=== PATIENT | male | born 1960 | race Caucasian/White ===

== ENCOUNTER 2022-03-14 16:41 | Emergency (ER) | payer MEDICAID, OTHER ==
[~2022-03-14] VITALS: Ht 167.6 cm; Wt 65.8 kg
[2022-03-14 17:47] LABS: Basophils # (auto) 0.1 10 ^3/uL (0-0.2); Basophils % (auto) 1.4 % (0.0-2.0); Eosinophils # (auto) 0.3 10 ^3/uL (0-0.8); Eosinophils % (auto) 6.1 % (0.0-7.0); Hematocrit 38.3 % (41.0-53.0); Hemoglobin 13.4 g/dL (13.5-17.5); Lymphocytes # (auto) 2.8 10 ^3/uL (0.4-5.4); Lymphocytes % (auto) 49.6 % (10.0-50.0); Mean Corpuscular Hgb Conc. 35.1 g/dL (32.0-36.0); Mean Corpuscular Volume 97.1 fL (80.0-100.0); Monocytes # (auto) 0.4 10 ^3/uL (0-1.3); Monocytes % (auto) 7.5 % (0.0-12.0); Neutrophils % (auto) 35.4 % (37.0-80.0); Nucleated Red Blood Cells % 0.1 %; Red Blood Cells 3.95 10^6/uL (4.5-5.90); Red Cell Distribution Width 13.3 % (11.8-14.3); White Blood Cell 5.7 10^3/uL (4.4-10.8)
[2022-03-14 18:29] LABS: Albumin 3.5 g/dL (3.4-5.0); Calcium 8.3 mg/dL (8.5-10.1); Magnesium 2.6 mg/dL (1.6-2.6); Potassium 3.9 mmol/L (3.5-5.1)
[2022-03-14 18:32] LABS: Bilirubin, Total 0.5 mg/dL (0.2-1.0); Total Protein 6.8 g/dL (6.4-8.2)
[2022-03-14] MEDS ORDERED: ASPirin-EC 325mg tab PO ONE (19:00)
[2022-03-14] MEDS ORDERED: SODIUM CHLORIDE 0.9% 3,000 ML IV ONE (19:00)
[2022-03-14 20:01] VITALS: BP 137/97
== END 2022-03-14 20:59 | disposition home or self-care (01) ==
LOC: EDBD 16:41 → ER 16:41
DX: R07.89 Other chest pain (principal); F10.10 Alcohol abuse, uncomplicated; I10 Essential (primary) hypertension
CPT/HCPCS: 36415; 71045; 80053; 80320; 83735; 83880; 84484; 85025; 93005; 96360; 99285; J7030

== ENCOUNTER 2022-05-27 11:59 | Emergency (ER) | payer MEDICAID ==
[~2022-05-27] VITALS: Ht 170.2 cm; Wt 160.0 kg
[2022-05-27] MEDS ORDERED: SODIUM CHLORIDE 0.9% 1,000 ML IV ONE ×2 (12:30)
[2022-05-27] MEDS ORDERED: THIAMINE 100mg/ml INJ (200mg/2ml VIAL) IV ONE (13:30)
[2022-05-27 13:34] LABS: Basophils # (auto) 0.1 10 ^3/uL (0-0.2); Basophils % (auto) 1.3 % (0.0-2.0); Eosinophils # (auto) 0.1 10 ^3/uL (0-0.8); Eosinophils % (auto) 1.4 % (0.0-7.0); Hematocrit 39.9 % (41.0-53.0); Hemoglobin 13.5 g/dL (13.5-17.5); Lymphocytes # (auto) 2.3 10 ^3/uL (0.4-5.4); Lymphocytes % (auto) 31.5 % (10.0-50.0); Mean Corpuscular Hemoglobin 32.1 pg (28.0-32.0); Mean Corpuscular Hgb Conc. 33.8 g/dL (32.0-36.0); Mean Corpuscular Volume 95.2 fL (80.0-100.0); Monocytes # (auto) 0.7 10 ^3/uL (0-1.3); Monocytes % (auto) 9.5 % (0.0-12.0); Neutrophils # (auto) 4.1 10 ^3/uL (1.6-8.6); Neutrophils % (auto) 56.3 % (37.0-80.0); Nucleated Red Blood Cells % 0.2 %; Red Cell Distribution Width 13.6 % (11.8-14.3); White Blood Cell 7.3 10^3/uL (4.4-10.8)
[2022-05-27 13:50] LABS: Albumin 3.8 g/dL (3.4-5.0); Calcium 8.4 mg/dL (8.5-10.1); Potassium 4.5 mmol/L (3.5-5.1)
[2022-05-27 13:54] LABS: BUN/Creatinine Ratio 9.4; Bilirubin, Total 0.7 mg/dL (0.2-1.0); Total Protein 7.4 g/dL (6.4-8.2)
[2022-05-27] MEDS ORDERED: ACETAMINOPHEN 500 MG TAB PO ONE (20:15)
[2022-05-27 21:50] VITALS: BP 165/99
== END 2022-05-27 23:15 | disposition home or self-care (01) ==
LOC: EDSEX 11:59 → EDBD 11:59 → ER 11:59
DX: S29.011A Strain of muscle and tendon of front wall of thorax, initial encounter (principal); I10 Essential (primary) hypertension; F17.210 Nicotine dependence, cigarettes, uncomplicated; F10.129 Alcohol abuse with intoxication, unspecified; W18.09XA Striking against other object with subsequent fall, initial encounter; Y93.89 Activity, other specified; Y92.89 Other specified places as the place of occurrence of the external cause; Y99.8 Other external cause status; Y90.8 Blood alcohol level of 240 mg/100 ml or more
CPT/HCPCS: 36415; 71045; 71250; 80053; 80320; 84484; 85025; 96361; 96374; 99285; J3411; J7030

== ENCOUNTER 2022-08-26 08:27 | Inpatient (IN) | payer MEDICAID ==
[~2022-08-26] VITALS: Ht 175.3 cm; Wt 75.5 kg
[2022-08-26] MEDS ORDERED: TETANUS-DIPTH-ACEL PERTUSSIS 0.5ML SYR Tdap IM ONE (10:45)
[2022-08-26 11:35] LABS: Basophils # (auto) 0.1 10 ^3/uL (0-0.2); Basophils % (auto) 0.4 % (0.0-2.0); Eosinophils # (auto) 0 10 ^3/uL (0-0.8); Hematocrit 43.6 % (41.0-53.0); Hemoglobin 14.6 g/dL (13.5-17.5); Lymphocytes # (auto) 1.2 10 ^3/uL (0.4-5.4); Lymphocytes % (auto) 8.3 % (10.0-50.0); Mean Corpuscular Hemoglobin 31.8 pg (28.0-32.0); Mean Corpuscular Hgb Conc. 33.4 g/dL (32.0-36.0); Mean Corpuscular Volume 95.2 fL (80.0-100.0); Monocytes # (auto) 1.4 10 ^3/uL (0-1.3); Monocytes % (auto) 9.4 % (0.0-12.0); Neutrophils # (auto) 12.1 10 ^3/uL (1.6-8.6); Neutrophils % (auto) 81.9 % (37.0-80.0); Red Blood Cells 4.58 10^6/uL (4.5-5.90); White Blood Cell 14.8 10^3/uL (4.4-10.8)
[2022-08-26 11:59] LABS: INR 1.03 (0.9-1.15); Partial Thromboplastin Time 27.4 sec (24.6-33.4)
[2022-08-26 12:43] LABS: BUN/Creatinine Ratio 12.5; Potassium 4.9 mmol/L (3.5-5.1)
[2022-08-26 12:44] LABS: Albumin 3.9 g/dL (3.4-5.0); Bilirubin, Total 0.9 mg/dL (0.2-1.0); Calcium 8.7 mg/dL (8.5-10.1); Magnesium 2.2 mg/dL (1.6-2.6)
[2022-08-26] MEDS ORDERED: chlordiazePOXIDE HCL 25 MG CAP PO ONE (16:15)
[2022-08-26] MEDS ORDERED: LORazepam 2MG/ML-1ML VIAL IV ONE (16:15)
[2022-08-26] MEDS ORDERED: SODIUM CHLORIDE 0.9% 1,000 ML IV ONE (16:15)
[2022-08-26] MEDS ORDERED: AMOXICILLIN/CLAVUL 875 MG TAB PO ONE (16:15)
[2022-08-26] MEDS ORDERED: NEOMYCIN-BACITRACIN-POLYM 15GM TOP OINT TOP ONE (18:20)
[2022-08-26] MEDS ORDERED: cefTRIAXone 1GM/50ML D5W 50 ML IV ONE (18:30)
[2022-08-26] MEDS: SODIUM CHLORIDE 0.9% 1,000 ML IV SCH (18:30)
[2022-08-26] MEDS ORDERED: PANTOPRAZOLE 40 MG/10 ML VIAL INJ IV ONE (18:30)
[2022-08-26] MEDS ORDERED: methylPREDNISolone SOD SUCC 125 MG/2 ML VL IV ONE (19:00)
[2022-08-26] MEDS ORDERED: ALBUTEROL SULF 2.5 MG/0.5ML(0.5%) NEB SOLN NEB ONE (19:00)
[2022-08-26] MEDS ORDERED: IPRATROPIUM BROM 0.5 MG/2.5ML INH SOL NEB ONE (19:00)
[2022-08-26] MEDS ORDERED: FUROSEMIDE 20 MG/2 ML VIAL IV ONE (19:00)
[2022-08-26 19:08] VITALS: BP 157/91
[2022-08-26] MEDS: ONDANSETRON HCL 4 MG/2 ML VIAL IV PRN (19:12)
[2022-08-26] MEDS ORDERED: OXYMETAZOLINE HCL 0.05 % NASAL SPRAY 15ML ONE (19:15)
[2022-08-26] MEDS ORDERED: OXYMETAZOLINE HCL 0.05 % NASAL SPRAY 15ML EACHNOSTRI ONE (19:15)
[2022-08-26] MEDS ORDERED: CLINDAMYCIN 600MG IV 50 ML IV ONE (19:15)
[2022-08-26 20:14] LABS: Urine Bacteria NONE SEEN /hpf (None Seen); Urine Blood 3+ /uL (Negative); Urine Specific Gravity 1.027 (1.001-1.035); Urine WBC 5 /hpf (0 - 3)
[2022-08-26 20:46] LABS: Amphetamine Screen, Urine NEGATIVE (NEGATIVE); Benzodiazephine Screen, Urine NEGATIVE (NEGATIVE); Cannabinoid Screen, Urine NEGATIVE (NEGATIVE); Cocaine Screen, Urine NEGATIVE (NEGATIVE); Opiate Scree,Urine NEGATIVE (NEGATIVE); Phencyclidine Screen, Urine NEGATIVE (NEGATIVE)
[2022-08-26 20:50] LABS: Barbiturate Scree,Urine NEGATIVE (NEGATIVE)
[2022-08-26] MEDS: methylPREDNISolone SOD SUCC 40 MG/ML VL IV SCH (22:09)
[2022-08-27] VITALS (60 sets, daily range): BP systolic 97–173; BP diastolic 63–106
[2022-08-27] MEDS ORDERED: HYDROcodone-ACET 7.5/325MG TAB PO PRN (00:45)
[2022-08-27] MEDS ORDERED: LABETALOL HCL 5 MG/ML 4ML SYRINGE IV ONE (02:15)
[2022-08-27] MEDS: ALBUTEROL SULF 2.5 MG/0.5ML(0.5%) NEB SOLN NEB SCH ×5 (03:15→18:01)
[2022-08-27] MEDS: IPRATROPIUM BROM 0.5 MG/2.5ML INH SOL NEB SCH ×5 (03:15→18:01)
[2022-08-27] MEDS ORDERED: ROCURONIUM 10MG/ML 10ML VIAL IV ONE ×2 (03:37→04:00)
[2022-08-27] MEDS ORDERED: ETOMIDATE (2MG/ML) 20ML VIAL IV ONE ×2 (03:37→04:00)
[2022-08-27] MEDS ORDERED: fentaNYL Drip 2500mCg/250mlNS 250 ML IV SCH (04:00)
[2022-08-27] MEDS ORDERED: MIDAZOLAM DRIP 50 mg/50mL 50 ML IV ONE (04:08)
[2022-08-27] MEDS ORDERED: IOHEXOL 350 MG/ML 100ML IJ ONE (05:03)
[2022-08-27 05:09] LABS: Basophils # (auto) 0 10 ^3/uL (0-0.2); Basophils % (auto) 0.1 % (0.0-2.0); Eosinophils # (auto) 0 10 ^3/uL (0-0.8); Hematocrit 37.9 % (41.0-53.0); Hemoglobin 12.9 g/dL (13.5-17.5); Lymphocytes # (auto) 0.5 10 ^3/uL (0.4-5.4); Lymphocytes % (auto) 7.9 % (10.0-50.0); Mean Corpuscular Hemoglobin 32.5 pg (28.0-32.0); Mean Corpuscular Volume 95.4 fL (80.0-100.0); Monocytes # (auto) 0.2 10 ^3/uL (0-1.3); Monocytes % (auto) 3.2 % (0.0-12.0); Neutrophils # (auto) 5.9 10 ^3/uL (1.6-8.6); Neutrophils % (auto) 88.8 % (37.0-80.0); Red Blood Cells 3.98 10^6/uL (4.5-5.90); Red Cell Distribution Width 14.4 % (11.8-14.3); White Blood Cell 6.6 10^3/uL (4.4-10.8)
[2022-08-27] MEDS: MIDAZOLAM DRIP 50 mg/50mL 50 ML IV SCH ×6 (05:14→22:56)
[2022-08-27 05:34] LABS: Albumin 3.2 g/dL (3.4-5.0); BUN/Creatinine Ratio 22.8; Calcium 7.8 mg/dL (8.5-10.1); Potassium 4.6 mmol/L (3.5-5.1)
[2022-08-27 05:36] LABS: Bilirubin, Total 1.1 mg/dL (0.2-1.0); Total Protein 6.3 g/dL (6.4-8.2)
[2022-08-27] MEDS: CLINDAMYCIN 600MG IV 50 ML IV SCH ×3 (05:36→19:58)
[2022-08-27] MEDS: SODIUM CHLORIDE 0.9% 1,000 ML IV SCH ×2 (06:26→14:30)
[2022-08-27] MEDS: methylPREDNISolone SOD SUCC 40 MG/ML VL IV SCH ×3 (07:15→21:53)
[2022-08-27] MEDS ORDERED: PROPOFOL 100 ML IV ONE (09:29)
[2022-08-27] MEDS: PROPOFOL 100 ML IV SCH ×2 (09:30→19:45)
[2022-08-27] MEDS: PANTOPRAZOLE 40 MG/10 ML VIAL INJ IV SCH (10:55)
[2022-08-27] MEDS: cefTRIAXone 1GM/50ML D5W 50 ML IV SCH (10:57)
[2022-08-27] MEDS: ENOXAPARIN SOD 40 MG/0.4 ML SYRINGE SC SCH (11:00)
[2022-08-27] MEDS: FOLIC ACID 1 MG, MULTIPLE VITAMIN 10 ML, MAGNESIUM SULF SDV 50% 8 MEQ, THIAMINE INJ 100... INJ SCH ×5 (13:10)
[2022-08-28] VITALS (80 sets, daily range): BP systolic 98–168; BP diastolic 61–103
[2022-08-28] MEDS: SODIUM CHLORIDE 0.9% 1,000 ML IV SCH ×3 (00:30→16:19)
[2022-08-28] MEDS: MIDAZOLAM DRIP 50 mg/50mL 50 ML IV SCH ×6 (03:07→21:33)
[2022-08-28] MEDS: CLINDAMYCIN 600MG IV 50 ML IV SCH ×3 (03:08→18:32)
[2022-08-28] MEDS: ALBUTEROL SULF 2.5 MG/0.5ML(0.5%) NEB SOLN NEB SCH ×4 (03:10→18:47)
[2022-08-28] MEDS: IPRATROPIUM BROM 0.5 MG/2.5ML INH SOL NEB SCH ×4 (03:10→18:47)
[2022-08-28] MEDS: PROPOFOL 100 ML IV SCH ×2 (04:30→15:30)
[2022-08-28 04:32] LABS: Basophils # (auto) 0 10 ^3/uL (0-0.2); Basophils % (auto) 0.2 % (0.0-2.0); Eosinophils # (auto) 0 10 ^3/uL (0-0.8); Hematocrit 33.6 % (41.0-53.0); Hemoglobin 11.3 g/dL (13.5-17.5); Lymphocytes # (auto) 0.4 10 ^3/uL (0.4-5.4); Lymphocytes % (auto) 5.5 % (10.0-50.0); Mean Corpuscular Hemoglobin 32.4 pg (28.0-32.0); Mean Corpuscular Hgb Conc. 33.5 g/dL (32.0-36.0); Monocytes # (auto) 0.5 10 ^3/uL (0-1.3); Monocytes % (auto) 7.2 % (0.0-12.0); Neutrophils # (auto) 6.5 10 ^3/uL (1.6-8.6); Neutrophils % (auto) 87.1 % (37.0-80.0); Red Blood Cells 3.47 10^6/uL (4.5-5.90); Red Cell Distribution Width 14.5 % (11.8-14.3); White Blood Cell 7.5 10^3/uL (4.4-10.8)
[2022-08-28 04:55] LABS: Albumin 2.8 g/dL (3.4-5.0); Calcium 7.8 mg/dL (8.5-10.1); Potassium 5.1 mmol/L (3.5-5.1)
[2022-08-28 04:59] LABS: BUN/Creatinine Ratio 35.2; Bilirubin, Total 0.5 mg/dL (0.2-1.0); Total Protein 5.4 g/dL (6.4-8.2)
[2022-08-28] MEDS: methylPREDNISolone SOD SUCC 40 MG/ML VL IV SCH ×3 (05:43→22:27)
[2022-08-28] MEDS: cefTRIAXone 1GM/50ML D5W 50 ML IV SCH (09:05)
[2022-08-28] MEDS: PANTOPRAZOLE 40 MG/10 ML VIAL INJ IV SCH (09:33)
[2022-08-28] MEDS: ENOXAPARIN SOD 40 MG/0.4 ML SYRINGE SC SCH (09:34)
[2022-08-28] MEDS ORDERED: IOHEXOL 350 MG/ML 100ML IJ ONE (10:34)
[2022-08-28] MEDS: FOLIC ACID 1 MG, MULTIPLE VITAMIN 10 ML, MAGNESIUM SULF SDV 50% 8 MEQ, THIAMINE INJ 100... INJ SCH ×5 (12:39)
[2022-08-29] VITALS (95 sets, daily range): BP systolic 100–166; BP diastolic 64–99
[2022-08-29] MEDS: ALBUTEROL SULF 2.5 MG/0.5ML(0.5%) NEB SOLN NEB SCH ×4 (00:18→18:16)
[2022-08-29] MEDS: IPRATROPIUM BROM 0.5 MG/2.5ML INH SOL NEB SCH ×4 (00:18→18:16)
[2022-08-29] MEDS: chlordiazePOXIDE HCL 25 MG CAP PO PRN (01:17)
[2022-08-29] MEDS: MIDAZOLAM DRIP 50 mg/50mL 50 ML IV SCH ×3 (02:09→23:02)
[2022-08-29] MEDS: CLINDAMYCIN 600MG IV 50 ML IV SCH ×3 (03:00→20:48)
[2022-08-29] MEDS: SODIUM CHLORIDE 0.9% 1,000 ML IV SCH (03:40)
[2022-08-29 04:49] LABS: Calcium 7.6 mg/dL (8.5-10.1)
[2022-08-29 04:53] LABS: Albumin 2.5 g/dL (3.4-5.0); BUN/Creatinine Ratio 29.5
[2022-08-29 05:05] LABS: Bilirubin, Total 0.4 mg/dL (0.2-1.0); Total Protein 5.2 g/dL (6.4-8.2)
[2022-08-29 05:17] LABS: Basophils # (auto) 0 10 ^3/uL (0-0.2); Basophils % (auto) 0.3 % (0.0-2.0); Eosinophils # (auto) 0 10 ^3/uL (0-0.8); Hemoglobin 10.7 g/dL (13.5-17.5); Lymphocytes % (auto) 11.1 % (10.0-50.0); Mean Corpuscular Hemoglobin 33.3 pg (28.0-32.0); Mean Corpuscular Hgb Conc. 34.5 g/dL (32.0-36.0); Mean Corpuscular Volume 96.5 fL (80.0-100.0); Monocytes # (auto) 0.7 10 ^3/uL (0-1.3); Monocytes % (auto) 7.6 % (0.0-12.0); Neutrophils # (auto) 6.9 10 ^3/uL (1.6-8.6); Red Blood Cells 3.21 10^6/uL (4.5-5.90); Red Cell Distribution Width 14.6 % (11.8-14.3); White Blood Cell 8.6 10^3/uL (4.4-10.8)
[2022-08-29] MEDS: methylPREDNISolone SOD SUCC 40 MG/ML VL IV SCH ×3 (05:42→22:26)
[2022-08-29] MEDS: PROPOFOL 100 ML IV SCH ×2 (05:43→20:48)
[2022-08-29] MEDS: fentaNYL Drip 2500mCg/250mlNS 250 ML IV SCH (08:15)
[2022-08-29] MEDS: cefTRIAXone 1GM/50ML D5W 50 ML IV SCH ×2 (09:00→11:47)
[2022-08-29] MEDS: FUROSEMIDE 100 MG/10ML VIAL IV SCH (10:00)
[2022-08-29] MEDS: ENOXAPARIN SOD 40 MG/0.4 ML SYRINGE SC SCH (10:00)
[2022-08-29] MEDS: PANTOPRAZOLE 40 MG/10 ML VIAL INJ IV SCH (10:00)
[2022-08-29] MEDS: FOLIC ACID 1 MG, MULTIPLE VITAMIN 10 ML, MAGNESIUM SULF SDV 50% 8 MEQ, THIAMINE INJ 100... INJ SCH ×5 (12:00)
[2022-08-30] VITALS (65 sets, daily range): BP systolic 89–186; BP diastolic 53–109
[2022-08-30] MEDS: IPRATROPIUM BROM 0.5 MG/2.5ML INH SOL NEB SCH ×4 (00:20→19:48)
[2022-08-30] MEDS: ALBUTEROL SULF 2.5 MG/0.5ML(0.5%) NEB SOLN NEB SCH ×4 (00:20→19:48)
[2022-08-30] MEDS: SODIUM CHLORIDE 0.9% 1,000 ML IV SCH ×4 (01:09→22:30)
[2022-08-30] MEDS: CLINDAMYCIN 600MG IV 50 ML IV SCH ×3 (03:00→18:07)
[2022-08-30 04:14] LABS: Basophils # (auto) 0 10 ^3/uL (0-0.2); Basophils % (auto) 0.3 % (0.0-2.0); Eosinophils # (auto) 0.1 10 ^3/uL (0-0.8); Eosinophils % (auto) 1.3 % (0.0-7.0); Hematocrit 33.3 % (41.0-53.0); Hemoglobin 11.3 g/dL (13.5-17.5); Lymphocytes # (auto) 2.1 10 ^3/uL (0.4-5.4); Lymphocytes % (auto) 34.2 % (10.0-50.0); Mean Corpuscular Hemoglobin 32.7 pg (28.0-32.0); Mean Corpuscular Volume 96.1 fL (80.0-100.0); Monocytes # (auto) 0.4 10 ^3/uL (0-1.3); Monocytes % (auto) 6.8 % (0.0-12.0); Neutrophils # (auto) 3.5 10 ^3/uL (1.6-8.6); Neutrophils % (auto) 57.4 % (37.0-80.0); Nucleated Red Blood Cells % 0.1 %; Red Blood Cells 3.47 10^6/uL (4.5-5.90); Red Cell Distribution Width 14.5 % (11.8-14.3); White Blood Cell 6.1 10^3/uL (4.4-10.8)
[2022-08-30 04:45] LABS: Albumin 2.6 g/dL (3.4-5.0); BUN/Creatinine Ratio 29.5; Calcium 7.7 mg/dL (8.5-10.1); Potassium 3.4 mmol/L (3.5-5.1)
[2022-08-30 04:53] LABS: Bilirubin, Total 0.4 mg/dL (0.2-1.0); Total Protein 5.2 g/dL (6.4-8.2)
[2022-08-30] MEDS: MIDAZOLAM DRIP 50 mg/50mL 50 ML IV SCH (05:21)
[2022-08-30] MEDS: PROPOFOL 100 ML IV SCH (05:21)
[2022-08-30] MEDS: methylPREDNISolone SOD SUCC 40 MG/ML VL IV SCH ×3 (06:01→22:21)
[2022-08-30] MEDS: POTASSIUM CHL 20MEQ/100ML 100 ML IV SCH ×2 (08:10→09:31)
[2022-08-30] MEDS: fentaNYL Drip 2500mCg/250mlNS 250 ML IV SCH (08:15)
[2022-08-30] MEDS: FUROSEMIDE 100 MG/10ML VIAL IV SCH (09:09)
[2022-08-30] MEDS: cefTRIAXone 1GM/50ML D5W 50 ML IV SCH (09:09)
[2022-08-30] MEDS: PANTOPRAZOLE 40 MG/10 ML VIAL INJ IV SCH (09:09)
[2022-08-30] MEDS: ENOXAPARIN SOD 40 MG/0.4 ML SYRINGE SC SCH (09:09)
[2022-08-30] MEDS: chlordiazePOXIDE HCL 25 MG CAP PO PRN (09:09)
[2022-08-30] MEDS: FOLIC ACID 1 MG, MULTIPLE VITAMIN 10 ML, MAGNESIUM SULF SDV 50% 8 MEQ, THIAMINE INJ 100... INJ SCH ×5 (12:27)
[2022-08-30] MEDS: MORPHINE SULFATE INJ 2 MG/ml SYRG IV PRN ×3 (13:10→22:21)
[2022-08-30] MEDS: hydrALAZINE HCL 20 MG/ML VL IV PRN (18:07)
[2022-08-30] MEDS ORDERED: NITROGLYCERIN 0.4 MG SL TAB SL ONE (18:42)
[2022-08-30] MEDS ORDERED: NITROGLYCERIN 0.4 MG SL TAB SL PRN (18:45)
[2022-08-30] MEDS ORDERED: NOREPINEPHRINE 8 MG/250ML KIT 250 ML IV ONE (18:52)
[2022-08-30] MEDS ORDERED: ALBUTEROL SULF 2.5 MG/0.5ML(0.5%) NEB SOLN NEB ONE (19:15)
[2022-08-30] MEDS ORDERED: IPRATROPIUM BROM 0.5 MG/2.5ML INH SOL NEB ONE (19:15)
[2022-08-30] MEDS: LORazepam 2MG/ML-1ML VIAL IV PRN (23:59)
[2022-08-31] VITALS (65 sets, daily range): BP systolic 115–185; BP diastolic 63–105
[2022-08-31] MEDS: ONDANSETRON HCL 4 MG/2 ML VIAL IV PRN (00:34)
[2022-08-31] MEDS: hydrALAZINE HCL 20 MG/ML VL IV PRN ×3 (00:34→23:21)
[2022-08-31] MEDS: IPRATROPIUM BROM 0.5 MG/2.5ML INH SOL NEB SCH ×4 (01:14→18:45)
[2022-08-31] MEDS: ALBUTEROL SULF 2.5 MG/0.5ML(0.5%) NEB SOLN NEB SCH ×4 (01:14→18:45)
[2022-08-31] MEDS: CLINDAMYCIN 600MG IV 50 ML IV SCH ×2 (02:33→12:14)
[2022-08-31] MEDS: MORPHINE SULFATE INJ 2 MG/ml SYRG IV PRN ×3 (02:34→19:59)
[2022-08-31] MEDS: SODIUM CHLORIDE 0.9% 1,000 ML IV SCH (03:18)
[2022-08-31 04:52] LABS: Basophils # (auto) 0 10 ^3/uL (0-0.2); Basophils % (auto) 0.1 % (0.0-2.0); Eosinophils # (auto) 0 10 ^3/uL (0-0.8); Hematocrit 35.2 % (41.0-53.0); Hemoglobin 12.1 g/dL (13.5-17.5); Lymphocytes # (auto) 0.4 10 ^3/uL (0.4-5.4); Lymphocytes % (auto) 10.1 % (10.0-50.0); Mean Corpuscular Hemoglobin 32.5 pg (28.0-32.0); Mean Corpuscular Hgb Conc. 34.2 g/dL (32.0-36.0); Mean Corpuscular Volume 94.9 fL (80.0-100.0); Monocytes # (auto) 0.1 10 ^3/uL (0-1.3); Monocytes % (auto) 2.6 % (0.0-12.0); Neutrophils # (auto) 3.7 10 ^3/uL (1.6-8.6); Neutrophils % (auto) 87.2 % (37.0-80.0); Nucleated Red Blood Cells % 0.1 %; Red Blood Cells 3.71 10^6/uL (4.5-5.90); Red Cell Distribution Width 14.3 % (11.8-14.3); White Blood Cell 4.2 10^3/uL (4.4-10.8)
[2022-08-31 05:19] LABS: Albumin 2.8 g/dL (3.4-5.0); Calcium 8.2 mg/dL (8.5-10.1); Potassium 3.3 mmol/L (3.5-5.1)
[2022-08-31 05:23] LABS: BUN/Creatinine Ratio 19.6; Bilirubin, Total 0.6 mg/dL (0.2-1.0); Total Protein 5.9 g/dL (6.4-8.2)
[2022-08-31] MEDS: methylPREDNISolone SOD SUCC 40 MG/ML VL IV SCH (05:43)
[2022-08-31] MEDS ORDERED: POTASSIUM CHL 20MEQ/100ML 100 ML IV ONE (07:00)
[2022-08-31] MEDS: fentaNYL Drip 2500mCg/250mlNS 250 ML IV SCH (08:15)
[2022-08-31] MEDS: LORazepam 2MG/ML-1ML VIAL IV PRN ×2 (08:24→17:11)
[2022-08-31] MEDS: cefTRIAXone 1GM/50ML D5W 50 ML IV SCH (09:20)
[2022-08-31] MEDS: ENOXAPARIN SOD 40 MG/0.4 ML SYRINGE SC SCH (09:56)
[2022-08-31] MEDS: PANTOPRAZOLE 40 MG/10 ML VIAL INJ IV SCH (09:56)
[2022-08-31] MEDS: FUROSEMIDE 100 MG/10ML VIAL IV SCH (10:00)
[2022-08-31] MEDS: chlordiazePOXIDE HCL 25 MG CAP PO PRN ×2 (12:14→21:57)
[2022-08-31] MEDS: PROPOFOL 100 ML IV SCH (12:15)
[2022-08-31] MEDS ORDERED: cloNIDine HCL 0.1 MG TAB PO ONE (12:45)
[2022-08-31] MEDS ORDERED: levoFLOXacin 500MG 100 ML IV ONE (13:15)
[2022-08-31] MEDS ORDERED: MULTIPLE VITAMINS W/ MINERALS TAB PO ONE (13:30)
[2022-08-31] MEDS ORDERED: THIAMINE 100mg/ml INJ (200mg/2ml VIAL) IV ONE (13:30)
[2022-08-31] MEDS: cloNIDine HCL 0.1 MG TAB PO SCH (21:52)
[2022-09-01] VITALS (19 sets, daily range): BP systolic 120–168; BP diastolic 69–93
[2022-09-01] MEDS: ALBUTEROL SULF 2.5 MG/0.5ML(0.5%) NEB SOLN NEB SCH ×4 (00:14→18:16)
[2022-09-01] MEDS: IPRATROPIUM BROM 0.5 MG/2.5ML INH SOL NEB SCH ×4 (00:14→18:16)
[2022-09-01] MEDS: MORPHINE SULFATE INJ 2 MG/ml SYRG IV PRN (02:14)
[2022-09-01 03:34] LABS: Basophils # (auto) 0 10 ^3/uL (0-0.2); Basophils % (auto) 0.4 % (0.0-2.0); Eosinophils # (auto) 0.1 10 ^3/uL (0-0.8); Eosinophils % (auto) 1.6 % (0.0-7.0); Hematocrit 34.1 % (41.0-53.0); Hemoglobin 11.8 g/dL (13.5-17.5); Lymphocytes # (auto) 2.3 10 ^3/uL (0.4-5.4); Lymphocytes % (auto) 27.7 % (10.0-50.0); Mean Corpuscular Hgb Conc. 34.6 g/dL (32.0-36.0); Mean Corpuscular Volume 95.4 fL (80.0-100.0); Monocytes # (auto) 0.9 10 ^3/uL (0-1.3); Monocytes % (auto) 11.3 % (0.0-12.0); Neutrophils # (auto) 4.9 10 ^3/uL (1.6-8.6); Nucleated Red Blood Cells % 0.1 %; Red Blood Cells 3.57 10^6/uL (4.5-5.90); Red Cell Distribution Width 14.4 % (11.8-14.3); White Blood Cell 8.3 10^3/uL (4.4-10.8)
[2022-09-01] MEDS: LORazepam 2MG/ML-1ML VIAL IV PRN ×2 (03:42→10:08)
[2022-09-01 03:54] LABS: Albumin 2.6 g/dL (3.4-5.0); BUN/Creatinine Ratio 16.7; Calcium 8.2 mg/dL (8.5-10.1)
[2022-09-01 03:57] LABS: Bilirubin, Total 0.5 mg/dL (0.2-1.0); Total Protein 5.5 g/dL (6.4-8.2)
[2022-09-01 04:12] LABS: Potassium 2.9 mmol/L (3.5-5.1)
[2022-09-01] MEDS ORDERED: POTASSIUM CHL 20 Meq TABLET PO ONE ×2 (05:45→12:00)
[2022-09-01] MEDS: fentaNYL Drip 2500mCg/250mlNS 250 ML IV SCH (08:15)
[2022-09-01] MEDS: MULTIPLE VITAMINS W/ MINERALS TAB PO SCH (09:14)
[2022-09-01] MEDS: cloNIDine HCL 0.1 MG TAB PO SCH ×3 (09:14→21:58)
[2022-09-01] MEDS: chlordiazePOXIDE HCL 25 MG CAP PO PRN (09:14)
[2022-09-01] MEDS: ENOXAPARIN SOD 40 MG/0.4 ML SYRINGE SC SCH (09:15)
[2022-09-01] MEDS: THIAMINE 100mg/ml INJ (200mg/2ml VIAL) IV SCH (09:15)
[2022-09-01] MEDS: PANTOPRAZOLE 40 MG/10 ML VIAL INJ IV SCH (09:15)
[2022-09-01] MEDS: levoFLOXacin 500MG 100 ML IV SCH (09:15)
[2022-09-01] MEDS: TEMAZEPAM 15 MG CAP PO PRN (21:59)
[2022-09-02] MEDS: IPRATROPIUM BROM 0.5 MG/2.5ML INH SOL NEB SCH ×4 (00:18→19:14)
[2022-09-02] MEDS: ALBUTEROL SULF 2.5 MG/0.5ML(0.5%) NEB SOLN NEB SCH ×4 (00:18→19:14)
[2022-09-02 05:00] VITALS: BP 108/66
[2022-09-02 05:53] LABS: BUN/Creatinine Ratio 17.6; Calcium 8.8 mg/dL (8.5-10.1); Magnesium 1.9 mg/dL (1.6-2.6); Potassium 3.4 mmol/L (3.5-5.1)
[2022-09-02 09:00] VITALS: BP 125/77
[2022-09-02] MEDS: levoFLOXacin 500MG 100 ML IV SCH (09:32)
[2022-09-02] MEDS: MULTIPLE VITAMINS W/ MINERALS TAB PO SCH (09:32)
[2022-09-02] MEDS: cloNIDine HCL 0.1 MG TAB PO SCH ×2 (09:32→21:14)
[2022-09-02] MEDS: ENOXAPARIN SOD 40 MG/0.4 ML SYRINGE SC SCH (09:32)
[2022-09-02] MEDS: PANTOPRAZOLE 40 MG TAB PO SCH (09:33)
[2022-09-02] MEDS: THIAMINE 100mg/ml INJ (200mg/2ml VIAL) IV SCH (09:34)
[2022-09-02 13:00] VITALS: BP 106/67
[2022-09-02] MEDS ORDERED: POTASSIUM CHL 20 Meq TABLET PO ONE (14:00)
[2022-09-02 16:41] VITALS: BP 158/92
[2022-09-02 22:00] VITALS: BP 151/92
[2022-09-03 01:04] VITALS: BP 157/90
[2022-09-03] MEDS: hydrALAZINE HCL 20 MG/ML VL IV PRN ×2 (04:28→15:20)
[2022-09-03 05:00] VITALS: BP 164/89
[2022-09-03] MEDS: IPRATROPIUM BROM 0.5 MG/2.5ML INH SOL NEB SCH ×4 (07:55→18:00)
[2022-09-03] MEDS: ALBUTEROL SULF 2.5 MG/0.5ML(0.5%) NEB SOLN NEB SCH ×4 (07:55→18:00)
[2022-09-03 09:00] VITALS: BP 188/107
[2022-09-03] MEDS: MULTIPLE VITAMINS W/ MINERALS TAB PO SCH (11:12)
[2022-09-03] MEDS: cloNIDine HCL 0.1 MG TAB PO SCH ×2 (11:12→21:35)
[2022-09-03] MEDS: PANTOPRAZOLE 40 MG TAB PO SCH (11:12)
[2022-09-03] MEDS: THIAMINE HCL 100 MG TAB PO SCH (11:12)
[2022-09-03] MEDS: levoFLOXacin 500MG 100 ML IV SCH (11:13)
[2022-09-03 12:20] LABS: Calcium 9.2 mg/dL (8.5-10.1); Potassium 3.7 mmol/L (3.5-5.1)
[2022-09-03 13:00] VITALS: BP 180/107
[2022-09-03] MEDS: chlordiazePOXIDE HCL 25 MG CAP PO PRN (15:19)
[2022-09-03] MEDS: LORazepam 2MG/ML-1ML VIAL IV PRN ×2 (15:20→23:22)
[2022-09-03 16:39] VITALS: BP 132/78
[2022-09-04 05:00] VITALS: BP 117/66
[2022-09-04] MEDS: IPRATROPIUM BROM 0.5 MG/2.5ML INH SOL NEB SCH ×2 (07:20)
[2022-09-04] MEDS: ALBUTEROL SULF 2.5 MG/0.5ML(0.5%) NEB SOLN NEB SCH ×2 (07:20)
[2022-09-04 09:00] VITALS: BP 121/73
[2022-09-04] MEDS: PANTOPRAZOLE 40 MG TAB PO SCH (10:44)
[2022-09-04] MEDS: levoFLOXacin 500MG 100 ML IV SCH (10:44)
[2022-09-04] MEDS: THIAMINE HCL 100 MG TAB PO SCH (10:44)
[2022-09-04] MEDS: cloNIDine HCL 0.1 MG TAB PO SCH ×2 (10:45→22:04)
[2022-09-04] MEDS: MULTIPLE VITAMINS W/ MINERALS TAB PO SCH (10:45)
[2022-09-04 12:54] VITALS: BP 97/58
[2022-09-04 15:58] VITALS: BP 106/65
[2022-09-04] MEDS: chlordiazePOXIDE HCL 25 MG CAP PO PRN (22:03)
[2022-09-04 22:04] VITALS: BP 127/71
[2022-09-05 05:23] VITALS: BP 136/70
[2022-09-05] MEDS: chlordiazePOXIDE HCL 25 MG CAP PO PRN (06:54)
[2022-09-05] MEDS: LORazepam 2MG/ML-1ML VIAL IV PRN ×2 (08:07→21:50)
[2022-09-05] MEDS: levoFLOXacin 500MG 100 ML IV SCH (12:01)
[2022-09-05] MEDS: MULTIPLE VITAMINS W/ MINERALS TAB PO SCH (12:01)
[2022-09-05] MEDS: THIAMINE HCL 100 MG TAB PO SCH (12:01)
[2022-09-05] MEDS: PANTOPRAZOLE 40 MG TAB PO SCH (12:01)
[2022-09-05] MEDS: cloNIDine HCL 0.1 MG TAB PO SCH ×2 (12:02→21:50)
[2022-09-05 15:42] LABS: Basophils # (auto) 0.1 10 ^3/uL (0-0.2); Basophils % (auto) 0.9 % (0.0-2.0); Eosinophils # (auto) 0.1 10 ^3/uL (0-0.8); Eosinophils % (auto) 1.7 % (0.0-7.0); Hematocrit 33.4 % (41.0-53.0); Hemoglobin 11.3 g/dL (13.5-17.5); Lymphocytes # (auto) 1.7 10 ^3/uL (0.4-5.4); Lymphocytes % (auto) 27.4 % (10.0-50.0); Mean Corpuscular Hemoglobin 32.4 pg (28.0-32.0); Mean Corpuscular Hgb Conc. 33.9 g/dL (32.0-36.0); Mean Corpuscular Volume 95.5 fL (80.0-100.0); Monocytes # (auto) 0.9 10 ^3/uL (0-1.3); Monocytes % (auto) 15.1 % (0.0-12.0); Neutrophils # (auto) 3.4 10 ^3/uL (1.6-8.6); Neutrophils % (auto) 54.9 % (37.0-80.0); Red Cell Distribution Width 14.8 % (11.8-14.3); White Blood Cell 6.2 10^3/uL (4.4-10.8)
[2022-09-05 16:07] LABS: Albumin 2.7 g/dL (3.4-5.0); BUN/Creatinine Ratio 19.2; Calcium 8.4 mg/dL (8.5-10.1); Potassium 4.1 mmol/L (3.5-5.1)
[2022-09-05 16:10] LABS: Bilirubin, Total 0.4 mg/dL (0.2-1.0); Total Protein 5.4 g/dL (6.4-8.2)
[2022-09-05 22:00] VITALS: BP 125/80
[2022-09-06 05:00] VITALS: BP 120/80
[2022-09-06 08:52] VITALS: BP 147/87
[2022-09-06] MEDS: THIAMINE HCL 100 MG TAB PO SCH (10:28)
[2022-09-06] MEDS: levoFLOXacin 500MG 100 ML IV SCH (10:28)
[2022-09-06] MEDS: cloNIDine HCL 0.1 MG TAB PO SCH ×2 (10:29→22:00)
[2022-09-06] MEDS: PANTOPRAZOLE 40 MG TAB PO SCH (10:29)
[2022-09-06] MEDS: MULTIPLE VITAMINS W/ MINERALS TAB PO SCH (10:29)
[2022-09-06] MEDS ORDERED: NICOTINE 21MG/24 HR TOPICAL PATCH TD ONE (13:00)
[2022-09-06 13:14] VITALS: BP 110/74
[2022-09-06 17:00] VITALS: BP 122/65
[2022-09-06 22:00] VITALS: BP 126/78
[2022-09-07 04:37] VITALS: BP 144/77
[2022-09-07 09:00] VITALS: BP 159/82
[2022-09-07] MEDS: PANTOPRAZOLE 40 MG TAB PO SCH (09:15)
[2022-09-07] MEDS: MULTIPLE VITAMINS W/ MINERALS TAB PO SCH (09:15)
[2022-09-07] MEDS: cloNIDine HCL 0.1 MG TAB PO SCH ×2 (09:16→20:27)
[2022-09-07] MEDS: THIAMINE HCL 100 MG TAB PO SCH (09:16)
[2022-09-07] MEDS: levoFLOXacin 500MG 100 ML IV SCH (09:16)
[2022-09-07] MEDS: NICOTINE 21MG/24 HR TOPICAL PATCH TD SCH (09:17)
[2022-09-07 13:00] VITALS: BP 165/84
[2022-09-07] MEDS ORDERED: LORazepam 2MG/ML-1ML VIAL IV PRN ×3 (14:00→22:00)
[2022-09-07] MEDS: LORazepam 2MG/ML-1ML VIAL IV PRN (14:09)
[2022-09-07 16:40] VITALS: BP 144/67
[2022-09-07 22:00] VITALS: BP 169/94
[2022-09-07] MEDS: TEMAZEPAM 15 MG CAP PO PRN (22:03)
[2022-09-08] MEDS: levETIRAcetam 500 MG TAB PO SCH ×3 (03:48→22:32)
[2022-09-08] MEDS: hydrALAZINE HCL 20 MG/ML VL IV PRN (04:40)
[2022-09-08 05:00] VITALS: BP 175/88
[2022-09-08 05:24] VITALS: BP 150/84
[2022-09-08 06:16] LABS: Basophils # (auto) 0.1 10 ^3/uL (0-0.2); Eosinophils # (auto) 0.1 10 ^3/uL (0-0.8); Eosinophils % (auto) 1.9 % (0.0-7.0); Hemoglobin 12.3 g/dL (13.5-17.5)
[2022-09-08 06:19] LABS: Basophils % (auto) 1.3 % (0.0-2.0); Hematocrit 35.8 % (41.0-53.0); Lymphocytes # (auto) 1.7 10 ^3/uL (0.4-5.4); Lymphocytes % (auto) 23.7 % (10.0-50.0); Mean Corpuscular Hemoglobin 32.8 pg (28.0-32.0); Mean Corpuscular Hgb Conc. 34.4 g/dL (32.0-36.0); Mean Corpuscular Volume 95.3 fL (80.0-100.0); Monocytes % (auto) 13.1 % (0.0-12.0); Neutrophils # (auto) 4.4 10 ^3/uL (1.6-8.6); Nucleated Red Blood Cells % 0.1 %; Red Blood Cells 3.76 10^6/uL (4.5-5.90); Red Cell Distribution Width 14.9 % (11.8-14.3); White Blood Cell 7.3 10^3/uL (4.4-10.8)
[2022-09-08 06:32] LABS: Potassium 4.4 mmol/L (3.5-5.1)
[2022-09-08 06:42] LABS: Albumin 3.1 g/dL (3.4-5.0); BUN/Creatinine Ratio 16.7; Bilirubin, Total 0.5 mg/dL (0.2-1.0)
[2022-09-08 09:00] VITALS: BP 172/87
[2022-09-08] MEDS: DOXYCYCLINE 100MG/250ML 250 ML IV SCH ×2 (10:15→22:33)
[2022-09-08] MEDS: THIAMINE HCL 100 MG TAB PO SCH (10:15)
[2022-09-08] MEDS: cloNIDine HCL 0.1 MG TAB PO SCH ×2 (10:18→22:33)
[2022-09-08] MEDS: PANTOPRAZOLE 40 MG TAB PO SCH (10:19)
[2022-09-08] MEDS: MULTIPLE VITAMINS W/ MINERALS TAB PO SCH (10:19)
[2022-09-08] MEDS: NICOTINE 21MG/24 HR TOPICAL PATCH TD SCH (10:21)
[2022-09-08] MEDS ORDERED: MORPHINE SULFATE INJ 2 MG/ml SYRG IV PRN (10:45)
[2022-09-08 13:00] VITALS: BP 136/78
[2022-09-08 16:37] VITALS: BP 145/89
[2022-09-08 21:58] VITALS: BP 124/77
[2022-09-09 04:58] VITALS: BP 105/75
[2022-09-09 08:25] VITALS: BP 132/78
[2022-09-09] MEDS: levETIRAcetam 500 MG TAB PO SCH ×2 (11:37→21:41)
[2022-09-09] MEDS: cloNIDine HCL 0.1 MG TAB PO SCH ×2 (11:38→21:54)
[2022-09-09] MEDS: MULTIPLE VITAMINS W/ MINERALS TAB PO SCH (11:38)
[2022-09-09] MEDS: PANTOPRAZOLE 40 MG TAB PO SCH (11:38)
[2022-09-09] MEDS: DOXYCYCLINE 100MG/250ML 250 ML IV SCH ×2 (11:39→21:42)
[2022-09-09] MEDS: THIAMINE HCL 100 MG TAB PO SCH (11:39)
[2022-09-09] MEDS: NICOTINE 21MG/24 HR TOPICAL PATCH TD SCH (11:44)
[2022-09-09 12:30] VITALS: BP 130/74
[2022-09-09 16:17] VITALS: BP 136/78
[2022-09-09] MEDS ORDERED: LORazepam 2MG/ML-1ML VIAL IV ONE (19:30)
[2022-09-09] MEDS ORDERED: KETOROLAC TROMETH 30 MG/ML 1ML VIAL IV ONE (20:45)
[2022-09-09] MEDS ORDERED: HYDROcodone-ACET 5/325MG TAB PO PRN (20:45)
[2022-09-10 04:43] VITALS: BP 137/77
[2022-09-10 08:59] VITALS: BP 101/71
[2022-09-10] MEDS ORDERED: TEMAZEPAM 15 MG CAP PO PRN (09:45)
[2022-09-10] MEDS: levETIRAcetam 500 MG TAB PO SCH ×2 (10:20→22:58)
[2022-09-10] MEDS: PANTOPRAZOLE 40 MG TAB PO SCH (10:21)
[2022-09-10] MEDS: THIAMINE HCL 100 MG TAB PO SCH (10:21)
[2022-09-10] MEDS: cloNIDine HCL 0.1 MG TAB PO SCH ×2 (10:21→22:59)
[2022-09-10] MEDS: MULTIPLE VITAMINS W/ MINERALS TAB PO SCH (10:21)
[2022-09-10] MEDS: NICOTINE 21MG/24 HR TOPICAL PATCH TD SCH (10:22)
[2022-09-10 12:37] VITALS: BP 107/68
[2022-09-10 16:00] VITALS: BP 116/70
[2022-09-10 22:00] VITALS: BP 136/75
[2022-09-11 05:00] VITALS: BP 139/69
[2022-09-11 09:00] VITALS: BP 122/80
[2022-09-11] MEDS: PANTOPRAZOLE 40 MG TAB PO SCH (09:50)
[2022-09-11] MEDS: THIAMINE HCL 100 MG TAB PO SCH (09:50)
[2022-09-11] MEDS: MULTIPLE VITAMINS W/ MINERALS TAB PO SCH (09:50)
[2022-09-11] MEDS: cloNIDine HCL 0.1 MG TAB PO SCH (09:50)
[2022-09-11] MEDS: levETIRAcetam 500 MG TAB PO SCH (09:51)
[2022-09-11] MEDS: NICOTINE 21MG/24 HR TOPICAL PATCH TD SCH (09:52)
[2022-09-11] MEDS ORDERED: KEP500T PO (11:31)
[2022-09-11] MEDS ORDERED: THIA100T10 PO (11:32)
[2022-09-11] MEDS ORDERED: CLON0.1T PO (11:32)
[2022-09-11] MEDS ORDERED: PANT40T PO (11:32)
[2022-09-11 13:00] VITALS: BP 118/73
[2022-09-11 14:17] VITALS: BP 122/80
== END 2022-09-11 17:25 | disposition home health service (06) | DRG 133 ==
LOC: ER 08:27 → EDBD 08:27 → OVERFLOW 18:26 → ICU WEST 08-27 09:23 → TELE-WESTW 09-01 18:27 → WEST WING 09-02 17:02 → EAST 09-03 22:35 → TELE-EAST 09-07 14:47
PROVIDERS: ADMIT Nurse Practitioner Family; ATTEND Internal Medicine
PROC: 0BH17EZ Insertion of Endotracheal Airway into Trachea, Via Natural or Artificial Opening (ICD-10-PCS; principal; 2022-08-27)
PROC: 5A1945Z Respiratory Ventilation, 24-96 Consecutive Hours (ICD-10-PCS; 2022-08-27)
DX: J96.00 Acute respiratory failure, unspecified whether with hypoxia or hypercapnia (principal); J69.0 Pneumonitis due to inhalation of food and vomit; E87.20 Acidosis, unspecified; K70.9 Alcoholic liver disease, unspecified; E44.0 Moderate protein-calorie malnutrition; E87.1 Hypo-osmolality and hyponatremia; G40.409 Other generalized epilepsy and epileptic syndromes, not intractable, without status epilepticus; L03.115 Cellulitis of right lower limb; S22.42XA Multiple fractures of ribs, left side, initial encounter for closed fracture; Z20.822 Contact with and (suspected) exposure to COVID-19; S00.83XA Contusion of other part of head, initial encounter; F17.210 Nicotine dependence, cigarettes, uncomplicated; R74.01 Elevation of levels of liver transaminase levels; L03.116 Cellulitis of left lower limb; I10 Essential (primary) hypertension; K76.0 Fatty (change of) liver, not elsewhere classified; F10.139 Alcohol abuse with withdrawal, unspecified; Y90.9 Presence of alcohol in blood, level not specified; W18.39XA Other fall on same level, initial encounter; Z79.899 Other long term (current) drug therapy; Y93.89 Activity, other specified; Y92.89 Other specified places as the place of occurrence of the external cause; Y99.8 Other external cause status; Z68.24 Body mass index [BMI] 24.0-24.9, adult
CPT/HCPCS: 36415; 36600; 70450; 70486; 70551; 71045; 71260; 71275; 72125; 73620; 74177; 80048; 80053; 80307; 80320; 81001; 82140; 82550; 82805; 83735; 83880; 84132; 84484; 85025; 85379; 85610; 85730; 87040; 87070; 87077; 87081; 87186; 87205; 87426; 90715; 93005; 93306; 94002; 94003; 94640; 94660; 95819; 96361; 96365; 96375; 96376; 97110; 97116; 97163; 97530; A4565; C9113; G0378; J0696; J1885; J1956; J2250; J2405; J2704; J3480; J3490; J7060

== ENCOUNTER 2023-04-12 08:58 | Emergency (ER) | payer MEDICAID ==
[~2023-04-12] VITALS: Ht 175.3 cm; Wt 90.9 kg
[~2023-04-12 08:58] MED LIST: CLON0.1T PO; KEP500T PO; PANT40T PO; THIA100T10 PO
[2023-04-12 09:39] LABS: Basophils # (auto) 0 10 ^3/uL (0-0.2); Basophils % (auto) 0.3 % (0.0-2.0); Eosinophils # (auto) 0.2 10 ^3/uL (0-0.8); Hemoglobin 13.7 g/dL (13.5-17.5); Monocytes # (auto) 0.3 10 ^3/uL (0-1.3); Red Cell Distribution Width 15.7 % (11.8-14.3); White Blood Cell 5.5 10^3/uL (4.4-10.8)
[2023-04-12 09:41] LABS: Eosinophils % (auto) 2.8 % (0.0-7.0); Hematocrit 41.4 % (41.0-53.0); Lymphocytes # (auto) 1.8 10 ^3/uL (0.4-5.4); Lymphocytes % (auto) 32.7 % (10.0-50.0); Mean Corpuscular Hgb Conc. 33.2 g/dL (32.0-36.0); Mean Corpuscular Volume 102.6 fL (80.0-100.0); Monocytes % (auto) 5.7 % (0.0-12.0); Neutrophils # (auto) 3.2 10 ^3/uL (1.6-8.6); Neutrophils % (auto) 58.5 % (37.0-80.0); Red Blood Cells 4.03 10^6/uL (4.5-5.90)
[2023-04-12 10:06] LABS: Albumin 3.5 g/dL (3.4-5.0); Calcium 8.3 mg/dL (8.5-10.1); Potassium 4.5 mmol/L (3.5-5.1)
[2023-04-12 10:09] LABS: BUN/Creatinine Ratio 22.9 (10.0-20.0); Bilirubin, Total 0.2 mg/dL (0.2-1.0)
[2023-04-12] MEDS ORDERED: SODIUM CHLORIDE 0.9% 1,000 ML IV ONE ×2 (11:15)
[2023-04-12 13:30] LABS: Urine Bacteria NONE SEEN /hpf (None Seen); Urine Blood Negative /uL (Negative); Urine Hyaline Cast FEW /lpf (0 - 2); Urine Mucus FEW (None Seen); Urine Specific Gravity 1.024 (1.001-1.035); Urine WBC 3 /hpf (0 - 3)
[2023-04-13 05:38] VITALS: BP 165/98
== END 2023-04-13 05:45 | disposition home or self-care (01) ==
LOC: ER 08:58 → EDBD 08:58 → ER 04-13 05:42
DX: F10.129 Alcohol abuse with intoxication, unspecified (principal); I10 Essential (primary) hypertension; F17.210 Nicotine dependence, cigarettes, uncomplicated
CPT/HCPCS: 36415; 71045; 71250; 74176; 80053; 80320; 81001; 84484; 85025; 93005; 96360; 96361; 99285; J7030

== ENCOUNTER 2024-05-12 15:34 | Emergency (ER) | payer MEDICAID ==
[~2024-05-12] VITALS: Ht 175.3 cm; Wt 90.9 kg
[2024-05-12] MEDS: SODIUM CHLORIDE 0.9% 1,000 ML IV ONE ×2 (15:45→22:00)
[2024-05-12] MEDS: ONDANSETRON HCL 4 MG/2 ML VIAL IV ONE (16:35)
[2024-05-12] MEDS: THIAMINE 100mg/ml INJ (200mg/2ml VIAL) IV ONE (16:35)
[2024-05-12 16:38] LABS: Basophils # (auto) 0.1 10 ^3/uL (0-0.2); Basophils % (auto) 1.1 % (0.0-2.0); Chloride 101 mmol/L (98-107); Eosinophils # (auto) 0.2 10 ^3/uL (0-0.8); Eosinophils % (auto) 2.2 % (0.0-7.0); Hematocrit 37.4 % (41.0-53.0); Hemoglobin 13.4 g/dL (13.5-17.5); Lymphocytes # (auto) 3.4 10 ^3/uL (0.4-5.4); Mean Corpuscular Hemoglobin 34.8 pg (28.0-32.0); Mean Corpuscular Volume 96.6 fL (80.0-100.0); Monocytes # (auto) 0.6 10 ^3/uL (0-1.3); Monocytes % (auto) 7.5 % (0.0-12.0); Neutrophils # (auto) 3.5 10 ^3/uL (1.6-8.6); Neutrophils % (auto) 45.2 % (37.0-80.0); Red Blood Cells 3.87 10^6/uL (4.5-5.90); Red Cell Distribution Width 13.4 % (11.8-14.3); Sodium 132 mmol/L (136-145); White Blood Cell 7.7 10^3/uL (4.4-10.8)
[2024-05-12 16:39] LABS: Anion Gap 6 (5-15); Calcium 8.9 mg/dL (8.7-10.4); Carbon Dioxide 25 mmol/L (20-30)
[2024-05-12 16:44] LABS: BUN/Creatinine Ratio 14.3 (10.0-20.0); Blood Urea Nitrogen 8 mg/dL (9-23); Glucose 80 mg/dL (74-106); Lipase 48 U/L (12-53)
[2024-05-12 16:54] LABS: Lactic Acid w/Reflex 2.5 mmol/L (0.4-2.0)
[2024-05-12 16:56] LABS: Urine Bacteria None Seen /hpf (None Seen); Urine WBC None Seen /hpf (0 - 3)
[2024-05-12 17:36] LABS: Urine Blood Negative /uL (Negative); Urine Clarity Clear (Clear); Urine Color Colorless (Yellow); Urine Protein, UAD Negative (Negative); Urine Specific Gravity 1.003 (1.001-1.035); Urine Urobilinogen Normal (Negative); Urine pH 5.5 (5.0-9.0)
[2024-05-12 17:39] LABS: Amphetamine Screen, Urine Neg (NEGATIVE); Barbiturate Scree,Urine Neg (NEGATIVE); Benzodiazephine Screen, Urine Neg (NEGATIVE); Cocaine Screen, Urine Neg (NEGATIVE); Opiate Scree,Urine Neg (NEGATIVE); Phencyclidine Screen, Urine Neg (NEGATIVE)
[2024-05-12 17:40] LABS: Cannabinoid Screen, Urine Neg (NEGATIVE)
[2024-05-12] MEDS: NICOTINE 14 MG/24HR TOPICAL PATCH TD ONE (18:03)
[2024-05-12 19:30] VITALS: PULSE 96; RESP 20; TEMP 98.3; O2SAT 94; O2SAT 96; O2SAT 98
[2024-05-12] MEDS ORDERED: ACET500T58 PO (22:05)
[2024-05-12 23:30] VITALS: BP 149/82; PULSE 95; RESP 22; O2SAT 98
== END 2024-05-13 00:55 | disposition home or self-care (01) ==
LOC: ER 15:34 → EDBD 15:34 → EDUNIT# 15:34 → ER 05-13 00:55
DX: G93.41 Metabolic encephalopathy (principal); F10.129 Alcohol abuse with intoxication, unspecified; I10 Essential (primary) hypertension; F17.210 Nicotine dependence, cigarettes, uncomplicated; Z59.00 Homelessness unspecified; Y90.8 Blood alcohol level of 240 mg/100 ml or more
CPT/HCPCS: 36415; 71045; 80048; 80307; 80320; 81001; 82962; 83605; 83690; 83880; 84484; 85025; 93005; 96361; 96374; 96375; 99285; J2405; J3411; J7030

== ENCOUNTER 2024-05-18 04:01 | Inpatient (IN) | payer MEDICAID ==
[~2024-05-18] VITALS: Ht 177.8 cm; Wt 69.2 kg
[2024-05-18] VITALS (7 sets, daily range): BP systolic 127–158; BP diastolic 73–88; PULSE 80–90; RESP 16–18; TEMP 98–98.9; O2SAT 92–98
[~2024-05-18 04:01] MED LIST changes: +ACET500T58 PO
[2024-05-18 04:45] LABS: Basophils # (auto) 0.1 10 ^3/uL (0-0.2); Basophils % (auto) 0.9 % (0.0-2.0); Eosinophils # (auto) 0.1 10 ^3/uL (0-0.8); Eosinophils % (auto) 2.1 % (0.0-7.0); Hematocrit 41.9 % (41.0-53.0); Hemoglobin 14.6 g/dL (13.5-17.5); Lymphocytes # (auto) 2.3 10 ^3/uL (0.4-5.4); Lymphocytes % (auto) 33.9 % (10.0-50.0); Mean Corpuscular Hgb Conc. 34.7 g/dL (32.0-36.0); Mean Corpuscular Volume 97.9 fL (80.0-100.0); Monocytes # (auto) 0.5 10 ^3/uL (0-1.3); Monocytes % (auto) 7.2 % (0.0-12.0); Neutrophils # (auto) 3.8 10 ^3/uL (1.6-8.6); Neutrophils % (auto) 55.9 % (37.0-80.0); Nucleated Red Blood Cells % 0.1 %; Red Blood Cells 4.28 10^6/uL (4.5-5.90); Red Cell Distribution Width 13.5 % (11.8-14.3); White Blood Cell 6.8 10^3/uL (4.4-10.8)
[2024-05-18 05:03] LABS: Alanine Aminotransferase 50 U/L (7-40); Albumin 4.4 g/dL (3.2-4.8); Alkaline Phosphatase 115 U/L (46-116); Anion Gap 6 (5-15); Aspartate Aminotransferase 71 U/L (13-40); BUN/Creatinine Ratio 10.4 (10.0-20.0); Bilirubin, Total 0.5 mg/dL (0.2-1.0); Blood Urea Nitrogen 7 mg/dL (9-23); Calcium 9.3 mg/dL (8.5-10.1); Carbon Dioxide 26 mmol/L (20-30); Chloride 102 mmol/L (98-107); Glucose 103 mg/dL (74-106); Magnesium 2.1 mg/dL (1.6-2.6); Potassium 4.2 mmol/L (3.5-5.1); Sodium 134 mmol/L (136-145); Total Protein 6.8 g/dL (5.7-8.2)
[2024-05-18 05:12] LABS: Blood Alcohol 296.9 mg/dL (<10)
[2024-05-18] MEDS: ASPirin 325 MG TAB PO ONE (08:56)
[2024-05-18] MEDS: FAMOTIDINE 20 MG TAB PO ONE (08:56)
[2024-05-18] MEDS: MAALOX PLUS or MAALOX 30 ML PO ONE (08:56)
[2024-05-18] MEDS: LIDOCAINE VISCOUS 2% 15ML UD PO ONE (08:56)
[2024-05-18] MEDS: MORPHINE SULFATE 4 MG/ML SYR/VIAL IV ONE (09:38)
[2024-05-18] MEDS: SODIUM CHLORIDE 0.9% 1,000 ML IV SCH (10:15)
[2024-05-18] MEDS ORDERED: NITROGLYCERIN 0.4 MG SL TAB SL PRN (10:15)
[2024-05-18] MEDS ORDERED: MORPHINE SULFATE INJ 2 MG/ml SYRG IV PRN (10:15)
[2024-05-18 11:18] LABS: Triglycerides 52 mg/dL (< 150)
[2024-05-18 11:19] LABS: LDL Cholesterol 20 mg/dL (< 100)
[2024-05-18 11:20] LABS: Cholesterol 144 mg/dL (< 200); HDL Cholesterol 96 mg/dL (40-59)
[2024-05-18] MEDS: cloNIDine HCL 0.1 MG TAB PO SCH (21:31)
[2024-05-18] MEDS: levETIRAcetam 500 MG TAB PO SCH (21:32)
[2024-05-18] MEDS: FOLIC ACID 1 MG, MAGNESIUM SULF SDV 50% 8 MEQ, MULTIPLE VITAMIN 10 ML, THIAMINE INJ 100... INJ SCH (21:35)
[2024-05-19] VITALS (8 sets, daily range): BP systolic 118–154; BP diastolic 78–95; PULSE 72–94; RESP 14–18; TEMP 97.8–98.5; O2SAT 91–96
[2024-05-19 05:45] LABS: Basophils # (auto) 0.1 10 ^3/uL (0-0.2); Eosinophils # (auto) 0.4 10 ^3/uL (0-0.8); Eosinophils % (auto) 5.6 % (0.0-7.0); Hematocrit 37.6 % (41.0-53.0); Hemoglobin 12.9 g/dL (13.5-17.5); Lymphocytes # (auto) 2.5 10 ^3/uL (0.4-5.4); Lymphocytes % (auto) 37.8 % (10.0-50.0); Mean Corpuscular Hemoglobin 33.9 pg (28.0-32.0); Mean Corpuscular Hgb Conc. 34.3 g/dL (32.0-36.0); Mean Corpuscular Volume 98.9 fL (80.0-100.0); Monocytes # (auto) 0.5 10 ^3/uL (0-1.3); Monocytes % (auto) 7.5 % (0.0-12.0); Neutrophils # (auto) 3.2 10 ^3/uL (1.6-8.6); Neutrophils % (auto) 48.1 % (37.0-80.0); Nucleated Red Blood Cells % 0.2 %; Red Cell Distribution Width 13.7 % (11.8-14.3); White Blood Cell 6.6 10^3/uL (4.4-10.8)
[2024-05-19 06:05] LABS: Alanine Aminotransferase 44 U/L (7-40); Albumin 3.6 g/dL (3.2-4.8); Alkaline Phosphatase 94 U/L (46-116); Anion Gap 6 (5-15); Aspartate Aminotransferase 59 U/L (13-40); BUN/Creatinine Ratio 16.1 (10.0-20.0); Bilirubin, Total 1.2 mg/dL (0.2-1.0); Blood Urea Nitrogen 10 mg/dL (9-23); Calcium 9.1 mg/dL (8.7-10.4); Carbon Dioxide 27 mmol/L (20-30); Chloride 102 mmol/L (98-107); Glucose 85 mg/dL (74-106); Potassium 3.9 mmol/L (3.5-5.1); Sodium 135 mmol/L (136-145); Total Protein 5.7 g/dL (5.7-8.2)
[2024-05-19] MEDS: ASPirin 81 mg TAB PO SCH (09:33)
[2024-05-19] MEDS: ENOXAPARIN SOD 40 MG/0.4 ML SYRINGE SC SCH (09:33)
[2024-05-19] MEDS: PANTOPRAZOLE 40 MG TAB PO SCH (09:34)
[2024-05-19] MEDS: THIAMINE HCL 100 MG TAB PO SCH (10:00)
[2024-05-19] MEDS ORDERED: PANTOPRAZOLE 40 MG/10 ML VIAL INJ IV SCH (10:00)
[2024-05-19] MEDS ORDERED: METO25TA5 PO (11:02)
[2024-05-19] MEDS ORDERED: LEVO25TA6 PO (11:02)
[2024-05-19] MEDS ORDERED: AMLO5CAP2 PO (11:02)
[2024-05-19] MEDS: LORazepam 2MG/ML-1ML VIAL IV ONE (16:30)
[2024-05-19] MEDS ORDERED: PANTOPRAZOLE 40 MG/10 ML VIAL INJ IV ONE (16:30)
[2024-05-19] MEDS: NICOTINE 21MG/24 HR TOPICAL PATCH TD ONE (17:30)
[2024-05-20] VITALS (8 sets, daily range): BP systolic 142–168; BP diastolic 81–99; PULSE 64–98; RESP 18–20; TEMP 97.7–98.5; O2SAT 90–93
[2024-05-20] MEDS: LORazepam 2MG/ML-1ML VIAL IV PRN ×2 (04:43→17:28)
[2024-05-20 05:24] LABS: Basophils # (auto) 0.1 10 ^3/uL (0-0.2); Eosinophils # (auto) 0.4 10 ^3/uL (0-0.8); Eosinophils % (auto) 6.5 % (0.0-7.0); Hemoglobin 12.8 g/dL (13.5-17.5); Lymphocytes # (auto) 1.9 10 ^3/uL (0.4-5.4); Mean Corpuscular Volume 98.2 fL (80.0-100.0); Monocytes # (auto) 0.5 10 ^3/uL (0-1.3)
[2024-05-20 05:26] LABS: Hematocrit 37.1 % (41.0-53.0); Lymphocytes % (auto) 33.2 % (10.0-50.0); Mean Corpuscular Hemoglobin 33.8 pg (28.0-32.0); Mean Corpuscular Hgb Conc. 34.5 g/dL (32.0-36.0); Monocytes % (auto) 8.4 % (0.0-12.0); Neutrophils # (auto) 2.9 10 ^3/uL (1.6-8.6); Neutrophils % (auto) 50.9 % (37.0-80.0); Red Blood Cells 3.78 10^6/uL (4.5-5.90); White Blood Cell 5.7 10^3/uL (4.4-10.8)
[2024-05-20 05:37] LABS: Alanine Aminotransferase 46 U/L (7-40); Albumin 3.6 g/dL (3.2-4.8); Alkaline Phosphatase 101 U/L (46-116); Anion Gap 3 (5-15); Aspartate Aminotransferase 43 U/L (13-40); BUN/Creatinine Ratio 13.8 (10.0-20.0); Bilirubin, Total 0.8 mg/dL (0.2-1.0); Blood Urea Nitrogen 8 mg/dL (9-23); Calcium 8.9 mg/dL (8.7-10.4); Carbon Dioxide 28 mmol/L (20-30); Chloride 105 mmol/L (98-107); Glucose 91 mg/dL (74-106); Potassium 3.9 mmol/L (3.5-5.1); Sodium 136 mmol/L (136-145); Total Protein 5.7 g/dL (5.7-8.2)
[2024-05-20] MEDS: NICOTINE 21MG/24 HR TOPICAL PATCH TD SCH (09:54)
[2024-05-20] MEDS: PANTOPRAZOLE 40 MG/10 ML VIAL INJ IV SCH (09:54)
[2024-05-21] VITALS (8 sets, daily range): BP systolic 120–159; BP diastolic 64–94; PULSE 69–93; RESP 18–22; TEMP 97.5–98.9; O2SAT 90–96
[2024-05-21 07:25] LABS: Basophils # (auto) 0.1 10 ^3/uL (0-0.2); Eosinophils # (auto) 0.4 10 ^3/uL (0-0.8); Eosinophils % (auto) 5.8 % (0.0-7.0); Hematocrit 39.2 % (41.0-53.0); Hemoglobin 13.3 g/dL (13.5-17.5); Lymphocytes # (auto) 2.2 10 ^3/uL (0.4-5.4); Lymphocytes % (auto) 34.3 % (10.0-50.0); Mean Corpuscular Hemoglobin 33.6 pg (28.0-32.0); Mean Corpuscular Hgb Conc. 33.8 g/dL (32.0-36.0); Mean Corpuscular Volume 99.3 fL (80.0-100.0); Monocytes # (auto) 0.7 10 ^3/uL (0-1.3); Monocytes % (auto) 10.8 % (0.0-12.0); Neutrophils % (auto) 48.1 % (37.0-80.0); Nucleated Red Blood Cells % 0.1 %; Red Blood Cells 3.95 10^6/uL (4.5-5.90); Red Cell Distribution Width 14.3 % (11.8-14.3); White Blood Cell 6.3 10^3/uL (4.4-10.8)
[2024-05-21 07:35] LABS: Anion Gap 4 (5-15); Carbon Dioxide 26 mmol/L (20-30); Chloride 107 mmol/L (98-107); Potassium 4.3 mmol/L (3.5-5.1); Sodium 137 mmol/L (136-145)
[2024-05-21 07:36] LABS: Calcium 9.2 mg/dL (8.7-10.4)
[2024-05-21 07:41] LABS: BUN/Creatinine Ratio 14.5 (10.0-20.0); Blood Urea Nitrogen 9 mg/dL (9-23); Glucose 102 mg/dL (74-106)
[2024-05-21] MEDS: ACETAMINOPHEN 325 MG TAB PO PRN (21:57)
[2024-05-22 01:00] VITALS: BP 123/70; PULSE 70; RESP 18; TEMP 97.8; O2SAT 93
[2024-05-22 05:00] VITALS: BP 136/82; PULSE 60; RESP 18; TEMP 97.6; O2SAT 95
[2024-05-22 09:05] VITALS: BP 138/79; PULSE 73; RESP 20; TEMP 97.7; O2SAT 96
[2024-05-22 13:00] VITALS: BP 150/90; PULSE 84; RESP 20; TEMP 98; O2SAT 97
[2024-05-22 17:00] VITALS: BP 137/99; PULSE 81; RESP 20; TEMP 97.9; O2SAT 97
[2024-05-22] MEDS ORDERED: AMLO5CAP2 PO (18:28)
[2024-05-22] MEDS ORDERED: ASPI-325 PO (18:28)
[2024-05-22] MEDS ORDERED: KEP500T PO (18:28)
[2024-05-22] MEDS ORDERED: CLON0.1T PO (18:28)
[2024-05-22] MEDS ORDERED: THIA100T10 PO (18:28)
[2024-05-22] MEDS ORDERED: LEVO25TA6 PO (18:28)
[2024-05-22] MEDS ORDERED: METO25TA5 PO (18:28)
[2024-05-22] MEDS ORDERED: ACET500T58 PO (18:28)
[2024-05-22] MEDS ORDERED: PANT40T PO (18:28)
== END 2024-05-22 20:58 | disposition home or self-care (01) | DRG 203 ==
LOC: ER 04:01 → TELE 10:17 → TELE-WESTW 12:21
PROVIDERS: ADMIT Internal Medicine Geriatric Medicine; ATTEND Internal Medicine Geriatric Medicine
DX: M94.0 Chondrocostal junction syndrome [Tietze] (principal); F03.90 Unspecified dementia, unspecified severity, without behavioral disturbance, psychotic disturbance, mood disturbance, and anxiety; F17.210 Nicotine dependence, cigarettes, uncomplicated; J06.9 Acute upper respiratory infection, unspecified; I10 Essential (primary) hypertension; F10.139 Alcohol abuse with withdrawal, unspecified; Z79.82 Long term (current) use of aspirin; Z59.00 Homelessness unspecified; I25.2 Old myocardial infarction; Z71.41 Alcohol abuse counseling and surveillance of alcoholic; Y90.8 Blood alcohol level of 240 mg/100 ml or more
CPT/HCPCS: 36415; 71045; 76705; 80048; 80053; 80061; 80320; 83735; 83880; 84443; 84484; 85025; 85379; 93005; 93306; 96361; 96374; G0378; J2470